=== PATIENT | female | born 1995 | race African-American/Black ===

== ENCOUNTER 2018-04-01 20:45 | Emergency (ER) | payer OTHER ==
[~2018-04-01] VITALS: Ht 175.3 cm; Wt 66.7 kg
[2018-04-01 22:51] LABS: CALCIUM 8.2 mg/dL (8.5-10.1); CARBON DIOXIDE 26.8 mmol/L (21-32); CHLORIDE SERUM 107 mmol/L (98-107); CREATININE SERUM 0.5 mg/dL (0.6-1.0); GFR1 > 60 mL/min; GLUCOSE SERUM 91 mg/dL (74-106); POTASSIUM SERUM 3.6 mmol/L (3.5-5.1); SODIUM SERUM 140 mmol/L (136-145)
[2018-04-01 23:02] LABS: ALBUMIN 3.8 g/dL (3.4-5.0); ALKALINE PHOSPHATASE 50 U/L (46-116); ALT/SGPT 14 U/L (14-59); AST/SGOT 15 U/L (15-37); BILIRUBIN TOTAL 0.2 mg/dL (0.20-1.00); FREE T4 0.75 ng/dL (0.76-1.46); LIPASE 202 IU/L (73-393); TOTAL PROTEIN, SERUM 7.4 g/dL (6.4-8.2)
[2018-04-01 23:14] LABS: BASOPHIL % 0.7 % (0-2); PLATELET COUNT 217 x10^3mcL (130-400); RED CELL DISTRIBUTION WIDTH 13.4 % (11.5-14.5)
[2018-04-02 00:09] VITALS: BP 123/75
== END 2018-04-02 00:09 | disposition home or self-care (01) ==
LOC: ED 20:45
PROVIDERS: Emergency Medicine
DX: K80.20 Calculus of gallbladder without cholecystitis without obstruction (principal)
CPT/HCPCS: 36415; 84439; Q0092